=== PATIENT | female | born 1990 | race Caucasian/White ===

== ENCOUNTER 2019-02-10 10:14 | Outpatient (CLI) | payer OTHER ==
[2019-02-10 10:37] LABS: BASOPHILS # (AUTO) 0.1 10^3/uL (0.0-0.1); BASOPHILS % (AUTO) 0.7 %; EOSINOPHILS # (AUTO) 0.1 10^3/uL (0.0-0.7); EOSINOPHILS % (AUTO) 0.5 %; HGB - HEMOGLOBIN 14.7 g/dL (12.0-16.0); LYMPHOCYTES # (AUTO) 2.3 10^3/uL (1.5-3.5); LYMPHOCYTES % (AUTO) 19.8 %; MEAN CORPUSCULAR HEMOGLOBIN 28.2 pg (27.0-31.0); MEAN CORPUSCULAR VOLUME 85.5 fL (81.0-99.0); MEAN PLATELET VOLUME 8.2 fL (7.9-10.8); MONOCYTES # (AUTO) 1.2 10^3/uL (0.0-1.0); MONOCYTES % (AUTO) 10.2 %; NEUTROPHILS # (AUTO) 7.9 10^3/uL (1.5-6.6); NEUTROPHILS % (AUTO) 68.8 %; PLT - PLATELET COUNT 348 10^3/uL (130-450); RED CELL DISTRIBUTION WIDTH 13.8 % (12.0-15.0); WHITE BLOOD COUNT 11.5 x10^3/uL (4.8-10.8)
[2019-02-10 10:47] LABS: ALBUMIN 4.4 g/dL (3.2-5.5); ALBUMIN/GLOBULIN RATIO 1.2 (1.0-2.2); ALKALINE PHOSPHATASE 60 IU/L (42-121); ALT ALANINE AMINOTRANSFERASE 35 IU/L (10-60); AST ASPARTATE AMINOTRANSFERASE 21 IU/L (10-42); BILIRUBIN,TOTAL 0.9 mg/dL (0.2-1.0); BUN - BLOOD UREA NITROGEN 12 mg/dL (6-20); CALCIUM 9.4 mg/dL (8.5-10.3); CARBON DIOXIDE - CO2 27 mmol/L (21-32); CHLORIDE 100 mmol/L (101-111); CHOL/HDL RATIO 6.2 (<4.4); CHOLESTEROL 279 mg/dL; CREATININE 0.7 mg/dL (0.4-1.0); GFR - MDRD 99 (>89); GLUCOSE 97 mg/dL (70-100); HDL CHOLESTEROL 45 mg/dL; LDL CHOLESTEROL,CALCULATED 187 mg/dL; LDL/HDL RATIO 4.2 (<4.4); SODIUM 136 mmol/L (135-145); TOTAL PROTEIN 8.2 g/dL (6.7-8.2); VLDL CHOLESTEROL 47 mg/dL
== END 2019-02-10 10:15 | disposition home or self-care (01) ==
LOC: LAB 10:14
PROVIDERS: ATTEND Nurse Practitioner
DX: Z00.00 Encounter for general adult medical examination without abnormal findings (principal); Z13.228 Encounter for screening for other metabolic disorders; Z13.220 Encounter for screening for lipoid disorders
CPT/HCPCS: 36415; 80053; 80061; 83721; 84443; 85025

== ENCOUNTER 2020-01-06 16:03 | Outpatient (CLI) | payer OTHER ==
--- NOTE | 2020-01-07 04:40 | Ultrasound Report ---
Reason: DEEP DYSPAREUNIA, MENSTRUAL IRREGULARITY Procedure Date: 01/06/2020 Accession Number: [id number] / [id number] Procedure: US - Pelvic w/Transvaginal CPT Code: Final Report FULL RESULT: EXAM: PELVIC ULTRASOUND EXAM DATE: 01/06/2020 05:20 PM. CLINICAL HISTORY: DEEP DYSPAREUNIA, MENSTRUAL IRREGULARITY. COMPARISON: None. TECHNIQUE: Realtime transabdominal pelvic scan performed to identify the uterus and adnexa and as an overview of other pelvic structures, followed by transvaginal scan to provide greater detail of the uterus and adnexa, with static image documentation. FINDINGS: Uterus: 7.7 x 3.2 x 4.0 cm, volume 50.4 cc. Anteverted position. Normal overall size and echotexture. Masses: None. Endometrium: 6 mm. Normal. Cervix: Normal. Right Ovary: 3.3 x 1.3 x 2.9 cm, volume 6.5 cc. Normal echotexture and blood flow. A dominant follicle with internal daughter cysts is incidentally seen measuring up to 2 cm. Left Ovary: 2.8 x 2.0 x 1.8 cm, volume 5.2 cc. Normal echotexture and blood flow. Free Fluid: None. Other: None. IMPRESSION: Normal pelvic ultrasound. RADIA
== END 2020-01-06 16:04 | disposition home or self-care (01) ==
LOC: DI 16:03
PROVIDERS: ATTEND Nurse Practitioner Obstetrics & Gynecology
DX: N94.12 Deep dyspareunia (principal); N92.6 Irregular menstruation, unspecified
CPT/HCPCS: 76830; 76856

== ENCOUNTER 2020-01-10 08:36 | Outpatient (CLI) | payer OTHER ==
[2020-01-10 09:11] LABS: BASOPHILS % (AUTO) 0.4 %; EOSINOPHILS # (AUTO) 0.1 10^3/uL (0.0-0.7); EOSINOPHILS % (AUTO) 1.7 %; HGB - HEMOGLOBIN 12.8 g/dL (12.0-16.0); LYMPHOCYTES # (AUTO) 2.2 10^3/uL (1.5-3.5); LYMPHOCYTES % (AUTO) 26.6 %; MEAN CORPUSCULAR HEMOGLOBIN 29.2 pg (27.0-31.0); MEAN CORPUSCULAR HGB CONC 33.3 g/dL (32.0-36.0); MEAN CORPUSCULAR VOLUME 87.5 fL (81.0-99.0); MEAN PLATELET VOLUME 9.5 fL (7.9-10.8); MONOCYTES # (AUTO) 0.7 10^3/uL (0.0-1.0); MONOCYTES % (AUTO) 8.9 %; NEUTROPHILS # (AUTO) 5.1 10^3/uL (1.5-6.6); PLT - PLATELET COUNT 344 10^3/uL (130-450); RED BLOOD COUNT 4.39 10^6/uL (4.20-5.40); RED CELL DISTRIBUTION WIDTH 12.3 % (12.0-15.0); WHITE BLOOD COUNT 8.2 x10^3/uL (4.8-10.8)
[2020-01-10 09:27] LABS: ALBUMIN 3.9 g/dL (3.2-5.5); ALBUMIN/GLOBULIN RATIO 1.2 (1.0-2.2); ALKALINE PHOSPHATASE 39 IU/L (42-121); ALT ALANINE AMINOTRANSFERASE 23 IU/L (10-60); AST ASPARTATE AMINOTRANSFERASE 19 IU/L (10-42); BILIRUBIN,TOTAL 0.3 mg/dL (0.2-1.0); BUN - BLOOD UREA NITROGEN 17 mg/dL (6-20); CALCIUM 9.3 mg/dL (8.5-10.3); CARBON DIOXIDE - CO2 24 mmol/L (21-32); CHLORIDE 103 mmol/L (101-111); CHOLESTEROL 267 mg/dL; CREATININE 0.8 mg/dL (0.4-1.0); GFR - MDRD 84 (>89); GLUCOSE 95 mg/dL (70-100); HDL CHOLESTEROL 53 mg/dL; LDL CHOLESTEROL,CALCULATED 169 mg/dL; LDL/HDL RATIO 3.2 (<4.4); SODIUM 135 mmol/L (135-145); TOTAL PROTEIN 7.1 g/dL (6.7-8.2); VLDL CHOLESTEROL 45 mg/dL
[2020-01-11 12:25] LABS: HEPATITIS C ANTIBODY NON-REACTIVE (NON-REACTIVE)
[2020-01-11 12:26] LABS: HEPATITIS B SURFACE ANTIGEN NON-REACTIVE (NON-REACTIVE)
[2020-01-11 14:15] LABS: HIV AG/AB 4TH GEN NON-REACTIVE (NON-REACTIVE)
[2020-01-12 13:54] LABS: HSV 2 IGG TYPE SPECIFIC AB <0.90 index
== END 2020-01-10 08:37 | disposition home or self-care (01) ==
LOC: LAB 08:36
PROVIDERS: ATTEND Nurse Practitioner Obstetrics & Gynecology
DX: Z11.3 Encounter for screening for infections with a predominantly sexual mode of transmission (principal); N92.6 Irregular menstruation, unspecified; Z13.228 Encounter for screening for other metabolic disorders; Z13.220 Encounter for screening for lipoid disorders; F32.9 Major depressive disorder, single episode, unspecified; F41.9 Anxiety disorder, unspecified
CPT/HCPCS: 36415; 80053; 80061; 81599; 83721; 84443; 85025; 86592; 86695; 86696; 86803; 87340; 87389

== ENCOUNTER 2020-10-04 21:22 | Outpatient (CLI) | payer OTHER | END 2020-10-04 21:23 | disposition home or self-care (01) | LOC: COV 21:22 | PROVIDERS: ATTEND Family Medicine | DX: R05 Cough (principal); M79.10 Myalgia, unspecified site; R53.83 Other fatigue; R68.83 Chills (without fever); Z20.828 Contact with and (suspected) exposure to other viral communicable diseases ==

== ENCOUNTER 2021-04-10 16:40 | Outpatient (CLI) | payer OTHER ==
[2021-04-10 17:06] LABS: BASOPHILS # (AUTO) 0.1 10^3/uL (0.0-0.1); BASOPHILS % (AUTO) 0.4 %; EOSINOPHILS # (AUTO) 0.2 10^3/uL (0.0-0.7); EOSINOPHILS % (AUTO) 1.2 %; HCT - HEMATOCRIT 38.8 % (37.0-47.0); HGB - HEMOGLOBIN 13.1 g/dL (12.0-16.0); LYMPHOCYTES # (AUTO) 2.9 10^3/uL (1.5-3.5); MEAN CORPUSCULAR HEMOGLOBIN 29.2 pg (27.0-31.0); MEAN CORPUSCULAR HGB CONC 33.8 g/dL (32.0-36.0); MEAN CORPUSCULAR VOLUME 86.6 fL (81.0-99.0); MEAN PLATELET VOLUME 9.5 fL (7.9-10.8); MONOCYTES # (AUTO) 0.7 10^3/uL (0.0-1.0); MONOCYTES % (AUTO) 5.8 %; NEUTROPHILS # (AUTO) 8.7 10^3/uL (1.5-6.6); NEUTROPHILS % (AUTO) 69.1 %; PLT - PLATELET COUNT 359 10^3/uL (130-450); RED BLOOD COUNT 4.48 10^6/uL (4.20-5.40); RED CELL DISTRIBUTION WIDTH 12.8 % (12.0-15.0); WHITE BLOOD COUNT 12.6 x10^3/uL (4.8-10.8)
[2021-04-10 17:22] LABS: ALBUMIN 4.2 g/dL (3.2-5.5); ALBUMIN/GLOBULIN RATIO 1.4 (1.0-2.2); BILIRUBIN,TOTAL 0.5 mg/dL (0.2-1.0); CALCIUM 9.2 mg/dL (8.5-10.3); CREATININE 0.7 mg/dL (0.4-1.0); POTASSIUM 3.6 mmol/L (3.5-5.0); TOTAL PROTEIN 7.3 g/dL (6.7-8.2)
== END 2021-04-10 16:41 | disposition home or self-care (01) ==
LOC: LAB 16:40
DX: F33.1 Major depressive disorder, recurrent, moderate (principal); Z31.69 Encounter for other general counseling and advice on procreation
CPT/HCPCS: 36415; 80053; 82306; 84443; 85025; 86762; 86787

== ENCOUNTER 2021-10-03 08:00 | Outpatient (CLI) | payer OTHER ==
[2021-10-04 21:21] LABS: BACTERIAL VAGINOSIS DNA NEGATIVE (NEGATIVE); CANDIDA GLABRATA DNA NEGATIVE (NEGATIVE); CANDIDA GROUP DNA NEGATIVE (NEGATIVE); CANDIDA KRUSEI DNA NEGATIVE (NEGATIVE); TRICHOMONAS VAGINALIS DNA NEGATIVE (NEGATIVE)
== END 2021-10-03 23:59 | disposition home or self-care (01) ==
LOC: LAB 08:00
PROVIDERS: ATTEND Nurse Practitioner Obstetrics & Gynecology
DX: N76.0 Acute vaginitis (principal)
CPT/HCPCS: 87661; 87801

== ENCOUNTER 2021-11-05 11:01 | Outpatient (CLI) | payer OTHER ==
--- NOTE | 2021-11-05 18:02 | Ultrasound Report ---
PROCEDURE: Pelvic w/Transvaginal INDICATIONS: FEMALE ORGASMIC DISORDER TECHNIQUE: Real-time scanning was performed of the pelvic organs, with image documentation. Additional endovagi nal scanning was necessary due to incomplete visualization of the adnexal and endometrial structures by transabdominal scanning. COMPARISON: None. FINDINGS: No pathologic free abdominal or pelvic fluid. Uterus: The anteverted uterus is normal in size at 8.8 x 3.0 x 4.2 cm. The endometrium measures 8 mm in combined thickness. Homogeneous uterine echotexture. Ovaries: Right ovary measures 3.9 x 1.9 x 2.9 cm for ovarian volume of 11 mL. Greater than 12 follic les are noted. Left ovary measures 4.1 x 2.6 x 3.0 cm with ovarian volume of 16.6 mL. There are also greater than 12 follicles on the left. No suspicious adnexal or ovarian mass lesions. Left ovary demo nstrates incidental cyst versus dominant follicle measuring approximately 2.3 x 1.4 x 3.0 cm. Small i nternal 3 mm cyst is noted. IMPRESSION: Pelvic ultrasound without acute sonographic abnormalities. Prominent ovarian volumes with multiple fo llicles which may represent polycystic ovarian syndrome. Recommend clinical correlation. Otherwise, u nremarkable sonographic evaluation of the pelvis. Reviewed by: Khanh Kulkarni MD on 11/05/2021 6:01 PM PST Approved by: Khanh Kulkarni MD on 11/05/2021 6:01 PM PST Station ID: [id number]
== END 2021-11-05 11:02 | disposition home or self-care (01) ==
LOC: DI 11:01
PROVIDERS: ATTEND Nurse Practitioner Obstetrics & Gynecology
DX: F52.31 Female orgasmic disorder (principal); N94.19 Other specified dyspareunia; R93.89 Abnormal findings on diagnostic imaging of other specified body structures

== ENCOUNTER 2022-01-09 09:14 | Outpatient (CLI) | payer OTHER ==
[2022-01-09 09:53] LABS: CHOL/HDL RATIO 7.8 (<4.4); CHOLESTEROL 298 mg/dL; HDL CHOLESTEROL 38 mg/dL; LDL CHOLESTEROL,CALCULATED 223 mg/dL; LDL/HDL RATIO 5.9 (<4.4); TRIGLYCERIDES 186 mg/dL; VLDL CHOLESTEROL 37 mg/dL
[2022-01-09 10:05] LABS: THYROID STIMULATING HORMONE 1.83 uIU/mL (0.34-5.60)
[2022-01-09 11:14] LABS: ESTIMATED AVERAGE GLUCOSE 123 mg/dL (70-100); HEMOGLOBIN A1c% 5.9 % (4.27-6.07)
== END 2022-01-09 09:15 | disposition home or self-care (01) ==
LOC: LAB 09:14
PROVIDERS: ATTEND Nurse Practitioner Family
DX: L68.0 Hirsutism (principal); E78.5 Hyperlipidemia, unspecified; E66.9 Obesity, unspecified; Z13.228 Encounter for screening for other metabolic disorders; E88.81 Metabolic syndrome and other insulin resistance
CPT/HCPCS: 36415; 80061; 81599; 83036; 83498; 83721; 84403; 84443

== ENCOUNTER 2022-01-10 11:05 | Outpatient (CLI) | payer OTHER | END 2022-01-10 11:06 | disposition home or self-care (01) | LOC: NS 11:05 | PROVIDERS: ATTEND Nurse Practitioner Family | DX: E66.9 Obesity, unspecified (principal); K21.9 Gastro-esophageal reflux disease without esophagitis; Z71.3 Dietary counseling and surveillance; Z71.89 Other specified counseling; Z68.41 Body mass index [BMI] 40.0-44.9, adult | CPT/HCPCS: 97802 ==

== ENCOUNTER 2023-04-29 08:33 | Outpatient (CLI) | payer OTHER ==
[2023-04-29 08:46] LABS: BASOPHILS % (AUTO) 0.4 %; EOSINOPHILS # (AUTO) 0.1 10^3/uL (0.0-0.7); EOSINOPHILS % (AUTO) 1.2 %; HCT - HEMATOCRIT 41.5 % (37.0-47.0); HGB - HEMOGLOBIN 13.9 g/dL (12.0-16.0); LYMPHOCYTES # (AUTO) 2.3 10^3/uL (1.5-3.5); LYMPHOCYTES % (AUTO) 24.3 %; MEAN CORPUSCULAR HEMOGLOBIN 28.5 pg (27.0-31.0); MEAN CORPUSCULAR HGB CONC 33.5 g/dL (32.0-36.0); MEAN CORPUSCULAR VOLUME 85.2 fL (81.0-99.0); MEAN PLATELET VOLUME 9.6 fL (7.9-10.8); MONOCYTES # (AUTO) 0.9 10^3/uL (0.0-1.0); MONOCYTES % (AUTO) 9.6 %; NEUTROPHILS % (AUTO) 64.3 %; PLT - PLATELET COUNT 386 10^3/uL (130-450); RED BLOOD COUNT 4.87 10^6/uL (4.20-5.40); WHITE BLOOD COUNT 9.4 x10^3/uL (4.8-10.8)
[2023-04-29 09:05] LABS: ALBUMIN 3.9 g/dL (3.2-5.5); ALBUMIN/GLOBULIN RATIO 1.1 (1.0-2.2); ALKALINE PHOSPHATASE 48 IU/L (42-121); ALT ALANINE AMINOTRANSFERASE 40 IU/L (10-60); AST ASPARTATE AMINOTRANSFERASE 24 IU/L (10-42); BILIRUBIN,TOTAL 0.5 mg/dL (0.2-1.0); BUN - BLOOD UREA NITROGEN 11 mg/dL (6-20); CARBON DIOXIDE - CO2 28 mmol/L (21-32); CHLORIDE 105 mmol/L (101-111); CHOL/HDL RATIO 6.6 (<4.4); CHOLESTEROL 278 mg/dL; CREATININE 0.8 mg/dL (0.4-1.0); GFR - MDRD 82 (>89); GLUCOSE 111 mg/dL (70-100); HDL CHOLESTEROL 42 mg/dL; LDL CHOLESTEROL,CALCULATED 180 mg/dL; LDL/HDL RATIO 4.3 (<4.4); POTASSIUM 4.5 mmol/L (3.5-5.0); SODIUM 138 mmol/L (135-145); TOTAL PROTEIN 7.3 g/dL (6.7-8.2); TRIGLYCERIDES 280 mg/dL; VLDL CHOLESTEROL 56 mg/dL
[2023-04-29 09:17] LABS: THYROID STIMULATING HORMONE 2.54 uIU/mL (0.34-5.60)
[2023-04-29 11:56] LABS: ESTIMATED AVERAGE GLUCOSE 120 mg/dL (70-100); HEMOGLOBIN A1c% 5.8 % (4.27-6.07)
== END 2023-04-29 08:34 | disposition home or self-care (01) ==
LOC: LAB 08:33
PROVIDERS: ATTEND Nurse Practitioner Family
DX: E78.5 Hyperlipidemia, unspecified (principal); E66.9 Obesity, unspecified; Z68.41 Body mass index [BMI] 40.0-44.9, adult
CPT/HCPCS: 36415; 80053; 80061; 83036; 83721; 84443; 85025